=== PATIENT | male | born 1975 | race Caucasian/White ===

== ENCOUNTER 2018-03-01 20:54 | Emergency (ER) | payer MEDICAID, OTHER ==
[2018-03-01] MEDS ORDERED: Tetanus/Diphtheria Toxoids 0.5 ml Syringe IM ONE (21:21)
[2018-03-01 21:28] VITALS: BP 115/78; PULSE 91; TEMP 98.2; O2SAT 100
[2018-03-01] MEDS ORDERED: Bacitracin 500 Units/gm Oint Foilpak UD ONE (21:28)
--- NOTE | 2018-03-01 21:36 | C.PDOC ---
History Of Present Illness 43 year old male presents to the ED complaining of left foot pain. Patient states he was wearing rubber sole shoes when he stepped on a nail on the street. He denies any weakness, numbness, or tingling. Tetanus vaccination status unknown. Time Seen by Provider: 03/01/18 21:12 Chief Complaint (Nursing): Lower Extremity Problem/Injury History Per: Patient History/Exam Limitations: no limitations Current Symptoms Are (Timing): Still Present Severity: Moderate - Ankle/Foot Description Of Injury: Other (Punctured left foot with nail ) Past Medical History Reviewed: Historical Data, Nursing Documentation, Vital Signs Vital Signs: Last Vital Signs Temp 98.2 F 03/01/18 21:01 Pulse 91 H 03/01/18 21:01 Resp 20 03/01/18 21:47 BP 115/78 03/01/18 21:01 Pulse Ox 100 03/02/18 00:56 - Medical History PMH: No Chronic Diseases Other Surgeries: Hx of surgery Family History: States: No Known Family Hx - Social History Hx Alcohol Use: No Hx Substance Use: No - Immunization History Hx Tetanus Toxoid Vaccination: No Hx Influenza Vaccination: No Hx Pneumococcal Vaccination: No Review Of Systems Except As Marked, All Systems Reviewed And Found Negative. Musculoskeletal: Positive for: Foot Pain (left) Neurological: Negative for: Weakness, Numbness Physical Exam - Physical Exam Appears: Non-toxic Skin: Warm, Dry Head: Normacephalic Eye(s): bilateral: Normal Inspection Nose: Normal Oral Mucosa: Moist Neck: Normal ROM Chest: Symmetrical Extremity: Capillary Refill (less than 2 sec to left foot ), No Deformity, No Swelling, Other (small puncture wound to plantar of left foot, no ecchymosis, no bleeding ) Pulses: Left Dorsalis Pedis: Normal, Right Dorsalis Pedis: Normal Neurological/Psych: Oriented x3, Normal Speech ED Course And Treatment O2 Sat by Pulse Oximetry: 100 (RA) Pulse Ox Interpretation: Normal Progress Note: Patient assessed and examined. Wound cleaned and bacitracin dressing applied by RN- Orthopedic shoe placed for support. Return precautions d /w pt Disposition Counseled Patient/Family Regarding: Diagnosis, Need For Followup, Rx Given - Disposition Referrals: Alexandra Aguilar MD [Staff Provider] - Disposition: HOME/ ROUTINE Disposition Time: 21:33 Condition: STABLE Additional Instructions: Please follow up with PMD Keep area clean and dry Apply bacitracin oint Return to ER if swelling, redness or worse Prescriptions: Ciprofloxacin [Cipro] 1 tab PO BID #14 tab Ibuprofen [Motrin] 600 mg PO Q6H #20 tab Instructions: Wound Care (DC) Forms: [employer] (Irish) - Clinical Impression Clinical Impression: Puncture wound of foot, left - 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 - Scribe Statement The provider has reviewed the documentation as recorded by the Scribestevan Betts All medical record entries made by the Alma were at my direction and personally dictated by me. I have reviewed the chart and agree that the record accurately reflects my personal performance of the history, physical exam, medical decision making, and the department course for this patient. I have also personally directed, reviewed, and agree with the discharge instructions and disposition.
[2018-03-01 21:48] VITALS: RESP 20
== END 2018-03-01 21:47 | disposition home or self-care (01) ==
LOC: C.ER 20:54
DX: S91.332A Puncture wound without foreign body, left foot, initial encounter (principal); W45.0XXA Nail entering through skin, initial encounter; Z23 Encounter for immunization

== ENCOUNTER 2018-05-09 14:41 | Emergency (ER) | payer MEDICAID ==
[2018-05-09 14:47] VITALS: BMI 25.7
[2018-05-09 15:07] VITALS: TEMP 97.5; O2SAT 100
--- NOTE | 2018-05-09 15:55 | C.PDOC ---
History Of Present Illness 43 y/o male with hx dm, takes meformin prn, presents with left medial eye blurred vision, started 3 hrs ago, feels like vertical line in eye, blurred medially. clear to lateral. no fb sensation but pt sts feels like something deeper in eye, but not painful. no headache. no trauma. no similar prior episodes. pt does not wear corrective lenses. pt reports since onset, blurred vision increases and decreases, but doesn't go away and never has there been no medial vision to left eye. 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 denies: Pain Past Medical History Reviewed: Historical Data, Nursing Documentation, Vital Signs Vital Signs: Last Vital Signs Temp 97.5 F L 05/09/18 15:04 Pulse 73 05/09/18 15:04 Resp 18 05/09/18 15:04 BP 110/77 05/09/18 15:04 Pulse Ox 100 05/09/18 15:04 - Medical History PMH: No Chronic Diseases Family History: States: Unknown Family Hx - Social History Hx Alcohol Use: No Hx Substance Use: No - Immunization History Hx Tetanus Toxoid Vaccination: No Hx Influenza Vaccination: No Hx Pneumococcal Vaccination: No Review Of Systems Constitutional: Negative for: Fever Eyes: Positive for: Vision Change. Negative for: Pain, Conjunctivae Inflammation, Eyelid Inflammation, Redness Cardiovascular: Negative for: Chest Pain, Palpitations Skin: Negative for: Rash Neurological: Negative for: Weakness, Numbness, Change in Speech, Altered Mental Status, Headache, Dizziness Physical Exam - Physical Exam Appears: Non-toxic, No Acute Distress Skin: Warm, Dry Head: Atraumatic, Normacephalic Eye(s): bilateral: Normal Inspection, PERRL, EOMI Ear(s): Bilateral: Normal Neck: Supple Cardiovascular: Rhythm Regular Respiratory: No Decreased Breath Sounds Neurological/Psych: Oriented x3, Normal Speech, Normal Cognition, Normal Cranial Nerves, No Cerebellar Signs, Normal Motor, Normal Sensation ED Course And Treatment O2 Sat by Pulse Oximetry: 100 Medical Decision Making Medical Decision Making: discussed with Dr Garcia; pt will go see him in office tomorrow at 9 am; pt agrees to plan. head ct neg. Disposition Discussed With Dr.: Morteza Garcia Doctor Will See Patient In The: Office Counseled Patient/Family Regarding: Studies Performed, Diagnosis, Need For Followup - Disposition Referrals: Morteza Garcia MD [Staff Provider] - Disposition: HOME/ ROUTINE Disposition Time: 17:14 Condition: GOOD Additional Instructions: Please follow up with Dr Garcia on Sat May 10 in his office at [address] [facility] [id number] at 9 am. Forms: [employer] (Angolan), General Discharge Instructions - Clinical Impression Clinical Impression: Disorder of vision
--- NOTE | 2018-05-09 17:03 | CT ---
Date of service: 05/09/2018 PROCEDURE: CT HEAD WITHOUT CONTRAST. HISTORY: left medial hemianopia COMPARISON: The TECHNIQUE: Axial computed tomography images were obtained through the head/brain without intravenous contrast. Radiation dose: Total exam DLP = 1002.88 mGy-cm. This CT exam was performed using one or more of the following dose reduction techniques: Automated exposure control, adjustment of the mA and/or kV according to patient size, and/or use of iterative reconstruction technique. FINDINGS: HEMORRHAGE: No acute parenchymal, subarachnoid or extra-axial hemorrhage. BRAIN: No mass effect or edema. No atrophy or chronic microvascular ischemic changes. Note that the possibility of a small hyperacute infarct cannot be excluded on this exam VENTRICLES: Unremarkable. No hydrocephalus. CALVARIUM: Unremarkable. PARANASAL SINUSES: Unremarkable as visualized. No significant inflammatory changes. MASTOID AIR CELLS: Unremarkable as visualized. No inflammatory changes. OTHER FINDINGS: None. IMPRESSION: No acute intracranial hemorrhage..
[2018-05-09 17:19] VITALS: BP 108/68; PULSE 70; RESP 16
== END 2018-05-09 17:24 | disposition home or self-care (01) ==
LOC: C.ER 14:41
DX: H53.8 Other visual disturbances (principal)

== ENCOUNTER 2018-05-21 16:57 | Inpatient (IN) | payer MEDICAID ==
[2018-05-21 16:57] VITALS: BMI 25.7
[2018-05-21] MEDS ORDERED: Sodium Chloride 0.9% 1,000 ML IV ONE (17:11)
--- NOTE | 2018-05-21 17:28 | C.PDOC ---
History Of Present Illness 43 y/o male brought in by ambulance for exacerbation of back pain, ongoing for some time. Patient was already seen at [facility] and by PMD Dr. Aguilar for same complaint. Patient had an MRI showing chronic problem. He states he went to pain management last week and was given Medrol dose pack and an injection. Per , patient also has been unable to pass any urine in 3 days, and he has not moved his bowels. Patient denies any focal weakness, numbness, tingling, SOB, chest pain, or vomiting. On arrival, patient is lying in stretcher writhing in pain. Time Seen by Provider: 05/21/18 17:04 Chief Complaint (Nursing): Back Pain History Per: Patient History/Exam Limitations: no limitations Onset/Duration Of Symptoms: Days Current Symptoms Are (Timing): Worse Quality Of Discomfort: "Pain" Previous Symptoms: Back Pain Associated Symptoms: None Past Medical History Reviewed: Historical Data, Nursing Documentation, Vital Signs Vital Signs: Last Vital Signs Temp 97.5 F L 05/21/18 17:08 Pulse 87 05/21/18 17:08 Resp 22 05/21/18 17:08 BP 145/82 05/21/18 17:08 Pulse Ox 100 05/21/18 17:08 - Medical History PMH: Diabetes Surgical History: No Surg Hx Family History: States: Unknown Family Hx - Social History Hx Alcohol Use: No Hx Substance Use: No - Immunization History Hx Tetanus Toxoid Vaccination: No Hx Influenza Vaccination: No Hx Pneumococcal Vaccination: No Review Of Systems Constitutional: Negative for: Fever, Chills Cardiovascular: Negative for: Chest Pain Respiratory: Negative for: Shortness of Breath Gastrointestinal: Positive for: Abdominal Pain, Constipation. Negative for: Nausea, Vomiting Genitourinary: Positive for: Other (Urinary retention x 3 days) Musculoskeletal: Positive for: Back Pain Neurological: Negative for: Weakness, Numbness, Incoordination, Dizziness Physical Exam - Physical Exam Appears: Non-toxic, In Acute Distress (mild to moderate painful distress) Skin: Normal Color, Warm, Dry Head: Atraumatic, Normacephalic Eye(s): bilateral: Normal Inspection Oral Mucosa: Moist Neck: Normal ROM Cardiovascular: Rhythm Regular, No Murmur Respiratory: Normal Breath Sounds, No Rales, No Rhonchi, No Wheezing Gastrointestinal/Abdominal: Soft, Tenderness (diffusely tender to palpation), No Guarding, No Rebound Extremity: Bilateral: Atraumatic, Normal ROM Pulses: Left Dorsalis Pedis: Normal, Right Dorsalis Pedis: Normal Neurological/Psych: Oriented x3, Normal Speech ED Course And Treatment - Laboratory Results Result Diagrams: 05/21/18 18:12 Lab Interpretation: No Acute Changes O2 Sat by Pulse Oximetry: 100 (RA) Pulse Ox Interpretation: Normal - CT Scan/US No standard instances Other Rad Studies (CT/US): Read By Radiologist, Radiology Report Reviewed CT/US Interpretation: FINDINGS: LOWER THORAX: Unremarkable. LIVER: Unremarkable. No gross lesion or ductal dilatation. GALLBLADDER AND BILE DUCTS: Unremarkable. PANCREAS: Unremarkable. No gross lesion or ductal dilatation. SPLEEN: Unremarkable. ADRENALS: Unremarkable. No mass. KIDNEYS AND URETERS: No evidence of calculus disease, hydronephrosis or hydroureter. Hyperdense cysts projects off the posterior aspect of the lower pole left kidney measuring less than 1 cm. VASCULATURE: Unremarkable. No aortic aneurysm. No atherosclerotic calcification or mural plaque present. BOWEL: Diffuse colonic distension with considerable debris identified in the right sandy colon. The remainder of the colon is distended. There is no mechanical obstruction. APPENDIX: Unremarkable. Normal appendix. PERITONEUM: Unremarkable. No free fluid. No free air. LYMPH NODES: Unremarkable. No enlarged lymph nodes. BLADDER: Unremarkable. REPRODUCTIVE: Unremarkable. BONES: No acute fracture . OTHER FINDINGS: None. IMPRESSION: No acute findings related to/ accounting for the clinical presentation. Additional benign and/or incidental findings described above. Progress Note: Treated with IVF NSS, toradol and morphine. Straight cath >200 ml urine obtained. 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 - Scribe Statement The provider has reviewed the documentation as recorded by the Scribe Clover Herman All medical record entries made by the Cecyibestevan were at my direction and personally dictated by me. I have reviewed the chart and agree that the record accurately reflects my personal performance of the history, physical exam, medical decision making, and the department course for this patient. I have also personally directed, reviewed, and agree with the discharge instructions and disposition. Decision To Admit - Pt Status Changed To: Hospital Disposition Of: Inpatient - Admit Certification Admit to Inpatient:: After my assessment, the patient will require hospitalization for at least two midnights. This is because of the severity of symptoms shown, intensity of services needed, and/or the medical risk in this patient being treated as an outpatient. - InPatient: Physician Admission Certification:: intractable back pain - . Bed Request Type: Regular Admitting Physician: Alexandra Aguilar Patient Diagnosis: Low back pain, Intractable back pain
[2018-05-21] MEDS ORDERED: Sodium Chloride 0.9% 1,000 ML ONE (17:34)
[2018-05-21 18:17] LABS: BASO % 0.4 % (0.0-2.0); EOS % 0.2 % (0.0-4.0); HEMOGLOBIN 15.4 g/dL (12.0-18.0); LYMPH # 1.9 K/uL (1.0-4.3); LYMPH % 34.2 % (20.0-40.0); MEAN CORPUSCULAR HEMOGLOBIN 29.7 pg (27.0-31.0); MEAN CORPUSCULAR HGB CONC 34.1 g/dL (33.0-37.0); MONO # 0.5 K/uL (0.0-0.8); MONO % 8.2 % (0.0-10.0); NEUT # 3.1 K/uL (1.8-7.0); RBC 5.18 Mil/uL (4.40-5.90); RED CELL DISTRIBUTION WIDTH 13.7 % (11.5-14.5); WHITE BLOOD COUNT 5.5 K/uL (4.8-10.8)
[2018-05-21 18:29] LABS: ALB/GLOB RATIO 1.2 (1.0-2.1); ALBUMIN 4.3 g/dL (3.5-5.0); ALT/SGPT 40 U/L (21-72); AST/SGOT 24 U/L (17-59); BLOOD UREA NITROGEN 30 mg/dL (9-20); CALCIUM 9.3 mg/dl (8.6-10.4); GFR NON-AFRICAN AMERICAN > 60; LIPASE 37 U/L (23-300)
--- NOTE | 2018-05-21 18:43 | CT ---
Date of service: 05/21/2018 PROCEDURE: CT Abdomen and Pelvis without intravenous contrast HISTORY: Bilateral flank pain COMPARISON: None. TECHNIQUE: Unenhanced. Neither IV nor oral contrast administered Radiation dose: Total exam DLP = 681.17 mGy-cm. This CT exam was performed using one or more of the following dose reduction techniques: Automated exposure control, adjustment of the mA and/or kV according to patient size, and/or use of iterative reconstruction technique. FINDINGS: LOWER THORAX: Unremarkable. LIVER: Unremarkable. No gross lesion or ductal dilatation. GALLBLADDER AND BILE DUCTS: Unremarkable. PANCREAS: Unremarkable. No gross lesion or ductal dilatation. SPLEEN: Unremarkable. ADRENALS: Unremarkable. No mass. KIDNEYS AND URETERS: No evidence of calculus disease, hydronephrosis or hydroureter. Hyperdense cysts projects off the posterior aspect of the lower pole left kidney measuring less than 1 cm. VASCULATURE: Unremarkable. No aortic aneurysm. No atherosclerotic calcification or mural plaque present. BOWEL: Diffuse colonic distension with considerable debris identified in the right sandy colon. The remainder of the colon is distended. There is no mechanical obstruction. APPENDIX: Unremarkable. Normal appendix. PERITONEUM: Unremarkable. No free fluid. No free air. LYMPH NODES: Unremarkable. No enlarged lymph nodes. BLADDER: Unremarkable. REPRODUCTIVE: Unremarkable. BONES: No acute fracture. OTHER FINDINGS: None. IMPRESSION: No acute findings related to/ accounting for the clinical presentation. Additional benign and/or incidental findings described above.
[2018-05-21] MEDS ORDERED: Morphine 4 MG/ML VIAL ONE (18:44)
[2018-05-21 18:45] LABS: URINE BILIRUBIN NEGATIVE (NEGATIVE); URINE BLOOD NEGATIVE (NEGATIVE); URINE CLARITY Hazy (Clear); URINE COLOR Yellow (YELLOW); URINE GLUCOSE (UA) NORMAL (Normal); URINE LEUKOCYTE ESTERASE NEG Leu/uL (Negative); URINE PROTEIN NEGATIVE (NEGATIVE)
[2018-05-21 19:05] VITALS: RESP 20
[2018-05-21] MEDS ORDERED: Lidocaine 5% Patch TD SCH (20:30)
[2018-05-21] MEDS ORDERED: Bisacodyl 5mg EC Tab PO ONE (21:30)
--- NOTE | 2018-05-21 23:50 | CP.PCM.CON ---
History of Present Illness - History of Present Illness History of Present Illness: 43 y/o male brought in by ambulance for exacerbation of back pain, ongoing for some time. Patient was already seen at [facility] and by PMD Dr. Aguilar for same complaint. Patient had an MRI showing chronic problem. He states he went to pain management last week and was given Medrol dose pack and an injection. Per , patient also has been unable to pass any urine in 3 days, and he has not moved his bowels. Patient denies any focal weakness, numbness, tingling, SOB, chest pain, or vomiting. On arrival, patient is lying in stretcher writhing in pain. History of constipation since 10 days and difficult urination since a week, p ain on urination. 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 Condition is getting worse. Past Medical History Reviewed: Historical Data, Nursing Documentation, Vital Signs Vital Signs: Last Vital Signs Temp 97.5 F L 05/21/18 17:08 Pulse 87 05/21/18 17:08 Resp 22 05/21/18 17:08 BP 145/82 05/21/18 17:08 Pulse Ox 100 05/21/18 17:08 - Medical History PMH: Diabetes Surgical History: No Surg Hx Family History: States: Unknown Family Hx - Social History Hx Alcohol Use: No Hx Substance Use: No - Immunization History Hx Tetanus Toxoid Vaccination: No Hx Influenza Vaccination: No Hx Pneumococcal Vaccination: No Review Of Systems Constitutional: Negative for: Fever, Chills Cardiovascular: Negative for: Chest Pain Respiratory: Negative for: Shortness of Breath Gastrointestinal: Positive for: Abdominal Pain, Constipation. Negative for: Nausea, Vomiting Genitourinary: Positive for: Other (Urinary retention x 3 days) Musculoskeletal: Positive for: Back Pain Neurological: Negative for: Weakness, Numbness, Incoordination, Dizziness Physical Exam - Physical Exam Appears: Non-toxic, In Acute Distress (mild to moderate painful distress) Skin: Normal Color, Warm, Dry Head: Atraumatic, Normacephalic Eye(s): bilateral: Normal Inspection Oral Mucosa: Moist Neck: Normal ROM Cardiovascular: Rhythm Regular, No Murmur Respiratory: Normal Breath Sounds, No Rales, No Rhonchi, No Wheezing Gastrointestinal/Abdominal: Soft, Tenderness (diffusely tender to palpation), No Guarding, No Rebound Extremity: Bilateral: Atraumatic, Normal ROM Pulses: Left Dorsalis Pedis: Normal, Right Dorsalis Pedis: Normal Neurological/Psych: Oriented x3, Normal Speech Lab Interpretation: No Acute Changes O2 Sat by Pulse Oximetry: 100 (RA) Pulse Ox Interpretation: Normal CT Scan/US BOWEL: Diffuse colonic distension with considerable debris identified in the right sandy colon. The remainder of the colon is distended. There is no mechanical obstruc tion. IMPRESSION: No acute findings related to/ accounting for the clinical present ation. Additional benign and/or incidental findings described above. Patient Diagnosis: Low back pain, Intractable back pain MRI of LS Spine is showing: left lateral L4-5 disc herniation. 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, with neuroforaminal stenosis Past Patient History - Past Medical History & Family History Past Medical History?: Yes - Past Social History Smoking Status: Never Smoked - ENDOCRINE/METABOLIC Hx Diabetes Mellitus Type 2: Yes - MUSCULOSKELETAL/RHEUMATOLOGICAL Hx Back Pain: Yes - GASTROINTESTINAL Hx Constipation: Yes - PSYCHIATRIC Hx Substance Use: No - SURGICAL HISTORY Hx Surgeries: No - ANESTHESIA Hx Anesthesia: Yes Hx Anesthesia Reactions: No Hx Malignant Hyperthermia: No Has any member of the family had a problem w/ anesthesia?: No Meds Allergies/Adverse Reactions: Allergies Allergy/AdvReac Type Severity Reaction Status Date / Time No Known Allergies Allergy Verified 05/21/18 17:08 - Medications Medications: Current Medications Enoxaparin Sodium (Lovenox) 40 mg SC DAILY [facility] Lactulose (Enulose) 20 gm PO BID [facility] Last Admin: 05/21/18 21:21 Dose: 20 gm Lidocaine (Lidoderm) 1 ea TD Q24H [facility] Last Admin: 05/21/18 22:05 Dose: 1 ea Metformin HCl (Glucophage) 500 mg PO DAILY@0800 [facility] Morphine Sulfate (Morphine) 2 mg IVP Q6 PRN PRN Reason: Pain, moderate (4-7) Physical Exam - Neurological Exam Additional comments: Lying down in bed, unable to move easily without help or excessive pain. Mental status: Awake, alert, oriented X 3, normal memory X 3 Fluent coherent speech Cranial nerves II to XII No deficits No facial asymmetry Motor: normal tone, normal Power +ve Lasegue test bilaterally, 45 degrees each. Cannot sit or stand without excessive help and has severe pain and te nderness. Distended abdomen, apparently due to his constipation and very tender on palpation. DTR 0 to 1/4 Toes are down going on plantar stimulation. Sensory: Tender abdomen and tender lower back and tender movement of his extrmeities or trunk Cerebellar: Normal FNT unable to perform HST or stand up or walk or niesha perform tandem walking. Results - Vital Signs Recent Vital Signs: Last Vital Signs Temp 97.6 F 05/21/18 19:13 Pulse 62 05/21/18 19:13 Resp 20 05/21/18 19:13 BP 128/85 05/21/18 19:13 Pulse Ox 97 05/21/18 20:16 - Labs Result Diagrams: 05/21/18 18:12 05/21/18 18:12 Labs: Laboratory Results - last 24 hr 05/21/18 05/21/18 05/21/18 18:12 18:12 18:12 WBC 5.5 RBC 5.18 Hgb 15.4 Hct 45.1 MCV 87.0 MCH 29.7 MCHC 34.1 RDW 13.7 Plt Count 290 MPV 9.0 Neut % (Auto) 57.0 Lymph % (Auto) 34.2 [place] % (Auto) 8.2 Eos % (Auto) 0.2 Baso % (Auto) 0.4 Neut # (Auto) 3.1 Lymph # (Auto) 1.9 [place] # (Auto) 0.5 Eos # (Auto) 0.0 Baso # (Auto) 0.0 Sodium 139 Potassium 4.2 Chloride 101 Carbon Dioxide 28 Anion Gap 14 BUN 30 H Creatinine 0.7 L Est GFR ( Amer) > 60 Est GFR (Non-Af Amer) > 60 Random Glucose 101 Calcium 9.3 Total Bilirubin 0.7 AST 24 ALT 40 Alkaline Phosphatase 45 Total Protein 8.0 Albumin 4.3 Globulin 3.7 Albumin/Globulin Ratio 1.2 Lipase 37 Urine Color Yellow Urine Clarity Hazy Urine pH 6.0 Ur Specific [place] 1.028 Urine Protein Negative Urine Glucose (UA) Normal Urine Ketones Negative Urine Blood Negative Urine Nitrate Negative Urine Bilirubin Negative Urine Urobilinogen 2.0 Ur Leukocyte Esterase Neg Urine WBC (Auto) 3 Urine RBC (Auto) 1 Assessment & Plan (1) Intractable back pain Assessment and Plan: Acute on top of chronic. 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 He is advised to relieve his constipation by fluids and avoiding meat and eating fruits and gren vegetables and salad, cucumber, tomato, lettuce, green onion, Lentil soup. 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 He needs to follow the directions of Dr Alexandra Aguilar, go to PT, Pain management, treatment of constipation. Status: Acute (2) Low back pain Assessment and Plan: LS Radiculopathy. He will need to have further assessment, follow up, management and testing as an out Patient. Status: Chronic (3) Disorder of vision Assessment and Plan: Must see Ophthalmology. Status: Chronic (4) Puncture wound of foot, left Assessment and Plan: Follow the current management. Status: Acute
[2018-05-22] MEDS ORDERED: Enoxaparin 40 mg Syringe SC SCH (10:00)
[2018-05-22 16:56] VITALS: BP 105/73; PULSE 73; TEMP 98.6; O2SAT 97
--- NOTE | 2018-05-22 18:30 | CP.PCM.PN ---
Subjective - Date & Time of Evaluation Date of Evaluation: 05/22/18 Time of Evaluation: 18:27 - Subjective Subjective: pt feels maricruz able to urinate and move his bowel kess back pain anxious to go home will do pt Objective - Vital Signs/Intake and Output Vital Signs (last 24 hours): Temp Pulse Resp BP Pulse Ox 98.6 F 73 20 105/73 97 05/22/18 16:00 05/22/18 16:00 05/22/18 16:00 05/22/18 16:00 05/22/18 16:00 Intake and Output: 05/22/18 05/22/18 06:59 18:59 Intake Total 120 480 Output Total 300 Balance 120 180 - Medications Medications: Current Medications Enoxaparin Sodium (Lovenox) 40 mg SC DAILY ON LICENSE OF [facility] Last Admin: 05/22/18 09:55 Dose: 40 mg Influenza Virus Vaccine (Fluzone Quad [id number]) 60 mcg IM .ONCE ONE Stop: 05/25/18 10:01 Lactulose (Enulose) 20 gm PO BID ON LICENSE OF [facility] Last Admin: 05/22/18 18:16 Dose: Not Given Lidocaine (Lidoderm) 1 ea TD Q24H ON LICENSE OF [facility] Last Admin: 05/21/18 22:05 Dose: 1 ea Metformin HCl (Glucophage) 500 mg PO DAILY@0800 ON LICENSE OF [facility] Last Admin: 05/22/18 08:19 Dose: 500 mg Morphine Sulfate (Morphine) 2 mg IVP Q6 PRN PRN Reason: Pain, moderate (4-7) Last Admin: 05/22/18 06:11 Dose: 2 mg Pneumococcal Polyvalent Vaccine (Pneumovax 23 Vaccine) 0.5 ml IM .ONCE ONE Stop: 05/25/18 10:01 - Labs Labs: 05/21/18 18:12 05/21/18 18:12 - Constitutional Appears: Non-toxic - Head Exam Head Exam: NORMAL INSPECTION - Eye Exam Eye Exam: Normal appearance Pupil Exam: NORMAL ACCOMODATION - ENT Exam ENT Exam: Normal Exam - Neck Exam Neck Exam: Normal Inspection - Respiratory Exam Respiratory Exam: NORMAL BREATHING PATTERN - Cardiovascular Exam Cardiovascular Exam: REGULAR RHYTHM - GI/Abdominal Exam GI & Abdominal Exam: Soft - Rectal Exam Rectal Exam: NORMAL INSPECTION - Exam Exam: NORMAL INSPECTION External exam: NORMAL EXTERNAL EXAM - Extremities Exam Extremities Exam: Normal Inspection - Neurological Exam Neurological Exam: Alert, Awake, Normal Gait, Oriented x3 - Psychiatric Exam Psychiatric exam: Normal Affect - Skin Skin Exam: Normal Color Assessment and Plan - Assessment and Plan (Free Text) Assessment: back pain constipation dificulty passing urin improved will d/c home avoid narcotics cont med at home Plan: disch
[2018-05-22] MEDS ORDERED: Pneumococcal 23-Valent Vaccine IM ONE (19:00)
[2018-05-22] MEDS ORDERED: Influenza Vaccine 60 MCG/0.5 ML SYR (3 yr & up) IM ONE (19:00)
--- NOTE | 2018-05-23 00:06 | CP.PCM.PN ---
Subjective - Date & Time of Evaluation Date of Evaluation: 05/22/18 Time of Evaluation: 19:00 - Subjective Subjective: Patient passed urine and had less back pain. He moved his bowel. He was discharged home. Objective - Vital Signs/Intake and Output Vital Signs (last 24 hours): Temp Pulse Resp BP Pulse Ox 98.6 F 73 20 105/73 97 05/22/18 16:00 05/22/18 16:00 05/22/18 16:00 05/22/18 16:00 05/22/18 16:00 Intake and Output: 05/22/18 05/23/18 18:59 06:59 Intake Total 480 Output Total 300 Balance 180 - Labs Labs: 05/21/18 18:12 05/21/18 18:12 Assessment and Plan (1) Intractable back pain Status: Acute (2) Low back pain Status: Chronic (3) Disorder of vision Status: Chronic (4) Puncture wound of foot, left Status: Acute
== END 2018-05-22 19:10 | disposition home or self-care (01) | DRG 243 ==
LOC: C.ER 16:57 → C.9E 17:56 → C.3T 18:32
PROVIDERS: ADMIT Internal Medicine; ATTEND Internal Medicine
DX: M51.26 Other intervertebral disc displacement, lumbar region (principal); M47.896 Other spondylosis, lumbar region; M48.061 Spinal stenosis, lumbar region without neurogenic claudication; M54.17 Radiculopathy, lumbosacral region; E11.9 Type 2 diabetes mellitus without complications; K59.00 Constipation, unspecified; S91.332A Puncture wound without foreign body, left foot, initial encounter